=== PATIENT | male | born 1965 | race Caucasian/White ===

== ENCOUNTER 2017-08-27 06:20 | Day surgery (SDC) | payer OTHER ==
[~2017-08-27] VITALS: Ht 190.5 cm; Wt 150.0 kg
[~2017-08-27 06:20] MED LIST: BACLOFEN20 MG PO; GABAPENTIN800 MG PO; METFORMIN HCL1000 MG PO; NAMENDA XR7 MG PO; NAMENDA5 MG PO; RANITIDINE HCL150 MG PO; SOMA350 MG PO; TRAMADOL HCL50 MG PO; VOLTAREN75 MG PO; ZOLOFT50 MG PO
[2017-08-27 06:35] VITALS: BP 122/80
[2017-08-27 13:02] VITALS: BP 111/75
[2017-08-27 15:46] VITALS: BP 113/64
[2017-08-27 19:59] VITALS: BP 102/64
[2017-08-28 00:12] VITALS: BP 121/79
[2017-08-28 04:16] VITALS: BP 112/75
[2017-08-28 07:43] VITALS: BP 113/72
[2017-08-28 12:24] VITALS: BP 110/72
[2017-08-28 16:37] VITALS: BP 115/67
[2017-08-28 20:38] VITALS: BP 126/65
[2017-08-29 00:08] VITALS: BP 119/81
[2017-08-29 04:15] VITALS: BP 109/60
[2017-08-29 07:53] VITALS: BP 126/82
[2017-08-29] MEDS ORDERED: ASPIRIN EC325 MG PO (08:57)
[2017-08-29] MEDS ORDERED: OXYCONTIN10 MG PO (08:58)
[2017-08-29] MEDS ORDERED: OXYCODONE HCL5 MG PO (08:58)
[2017-08-29 12:02] VITALS: BP 143/74
== END 2017-08-29 12:05 | disposition home or self-care (01) ==
LOC: SDC 06:20 → 3WEST 09:53 → 2SOUTH 09:53 → CANRESERV 10:16 → ENRESERV 10:16 → 3WEST 12:48 → SDC 15:18 → 3WEST 08-29 12:05
PROVIDERS: Orthopaedic Surgery
PROC: 0RRK0J6 Replacement of Left Shoulder Joint with Synthetic Substitute, Humeral Surface, Open Approach (ICD-10-PCS; principal; 2017-08-27)
DX: M19.012 Primary osteoarthritis, left shoulder (principal); J45.909 Unspecified asthma, uncomplicated; I10 Essential (primary) hypertension; F31.9 Bipolar disorder, unspecified; R41.3 Other amnesia; Z88.0 Allergy status to penicillin
CPT/HCPCS: 82948; G0378; J0330; J1170; J2250; J2405; J2795; J7030; J7050

== ENCOUNTER 2017-11-29 20:17 | Emergency (ER) | payer OTHER ==
[~2017-11-29] VITALS: Ht 193 cm; Wt 146.2 kg
[~2017-11-29 20:17] MED LIST changes: +ASPIRIN EC325 MG PO; +OXYCODONE HCL5 MG PO; +OXYCONTIN10 MG PO
[2017-11-29 21:11] LABS: BASOPHIL (%) 0.3 % (0-1); EOSINOPHIL (%) 0.3 % (0-5); HEMATOCRIT 42.8 % (38.0-50.0); HEMOGLOBIN 15.1 G/DL (12.5-16.6); IMMATURE GRANULOCYTE (%) 0.3 % (0.0-0.7); LYMPHOCYTE (%) 11.5 % (15-42); LYMPHOCYTE COUNT 1.3 K/uL (1.0-2.8); MCH 32.3 PG (29.0-34.0); MCHC 35.3 G/DL (30.0-36.0); MCV 91.6 FL (86-99); MONOCYTE COUNT 0.9 K/uL (0-0.8); NEUTROPHIL (%) 79.6 % (45-76); NEUTROPHIL COUNT 9.2 K/uL (1.8-6.4); PLATELET COUNT 202 K/uL (156-360); RBC DIS.WIDTH-SD 43.8 % (39-53); RED BLOOD COUNT 4.67 M/uL (4.00-5.50); WHITE BLOOD COUNT 11.5 K/uL (4.1-10.2)
[2017-11-29 21:19] LABS: ALBUMIN 4.1 g/dL (3.2-4.8); CHLORIDE 105 mEq/L (99-109); POTASSIUM 3.9 mEq/L (3.7-5.4); SODIUM 139 mEq/L (136-147)
[2017-11-29 21:22] LABS: GLUCOSE 117 mg/dL (70-99); TOTAL PROTEIN 6.9 g/dL (6.4-8.3)
[2017-11-29 21:24] LABS: TOTAL BILIRUBIN 0.8 mg/dL (0.0-1.0)
[2017-11-29 21:25] LABS: ALKALINE PHOSPHATASE 65 IU/L (3-129)
[2017-11-29 21:26] LABS: CREATININE 1.1 mg/dL (0.6-1.3); GFR ESTIMATE (CALCULATED) > 59 mL/min/ (58.99-99999)
[2017-11-29 21:27] LABS: AST (GOT) 24 IU/L (2-34); DIRECT BILIRUBIN 0.3 mg/dL (0.0-0.3); UREA NITROGEN (BUN) 18 mg/dL (9-23)
[2017-11-29 21:28] LABS: ALT (GPT) 39 IU/L (3-49)
[2017-11-29 21:29] LABS: LIPASE 217 U/L (1.0-51.0)
[2017-11-29 23:31] LABS: APPEARANCE CLEAR ((CLEAR)); BILIRUBIN NEGATIVE; BLOOD NEGATIVE; COLOR YELLOW ((YELLOW)); GLUCOSE (STRIP) NEGATIVE; KETONES 20; LEUKOCYTES NEGATIVE; NITRITE NEGATIVE; PROTEIN (STRIP) NEGATIVE; SPECIFIC GRAVITY 1.024 (1.000-1.030); UCUL ADDED? NO; UROBILINOGEN 0.2 MG/DL (0.2-1.0)
[2017-11-30] MEDS ORDERED: NORCO 5/3251 TABLET PO (00:19)
[2017-11-30 00:41] VITALS: BP 118/74
== END 2017-11-30 00:50 | disposition home or self-care (01) ==
LOC: EME 20:17
PROVIDERS: Emergency Medicine
DX: N13.2 Hydronephrosis with renal and ureteral calculous obstruction (principal); E11.9 Type 2 diabetes mellitus without complications; G89.29 Other chronic pain; M54.9 Dorsalgia, unspecified; F17.200 Nicotine dependence, unspecified, uncomplicated; Z79.84 Long term (current) use of oral hypoglycemic drugs; Z88.0 Allergy status to penicillin
CPT/HCPCS: 74176; 80048; 80076; 81003; 83690; 85025; 93005; 99281; 99284; J1885; J2405; J3010; J7030